=== PATIENT | female | born 1990 | race Hispanic/Latino ===

== ENCOUNTER 2022-08-10 23:52 | Emergency (ER) | payer OTHER ==
[~2022-08-10] VITALS: Ht 157.5 cm; Wt 74.8 kg
[2022-08-11 00:56] LABS: BASOPHILS % (AUTO) 0.5 % (0.0-5.0); EOSINOPHILS % (AUTO) 2.3 % (0.0-8.0); HEMATOCRIT 34.3 % (36-48); LYMPHOCYTES % (AUTO) 25.2 % (21.0-51.0); MEAN CORPUSCULAR HEMOGLOBIN 23.4 pg (27.0-33.0); MEAN CORPUSCULAR HGB CONC 31.5 g/dL (32.0-36.0); MEAN CORPUSCULAR VOLUME 74.2 fL (79-99); MONOCYTES % (AUTO) 5.8 % (3.0-13.0); NEUTROPHILS % (AUTO) 65.9 % (40.0-77.0); PLATELET COUNT (AUTO) 281 K/uL (130-400); RED BLOOD CELL COUNT(AUTO) 4.62 MIL/uL (4.00-5.50); RED CELL DISTRIBUTION WIDTH 15.4 % (11.0-15.5); WHITE BLOOD COUNT (AUTO) 11.6 K/uL (4.8-10.8)
[2022-08-11 00:59] LABS: APPEARANCE,URINE CLOUDY (CLEAR); BILIRUBIN,URINE NEGATIVE (NEGATIVE); COLOR,URINE YELLOW (YELLOW); GLUCOSE, URINE (UA) NEGATIVE (NEGATIVE); KETONES,URINE NEGATIVE (NEGATIVE); LEUKOCYTE ESTERASE ,URINE NEGATIVE Leu/uL (NEGATIVE); NITRATE,URINE 2+ (NEGATIVE); OCCULT BLOOD,URINE NEGATIVE (NEGATIVE); PH,URINE 5.5 (5.0-8.0); PROTEIN,URINE 30 mg/dL (NEGATIVE); UROBILINOGEN,URINE 0.2 mg/dL (0.2-1.0)
[2022-08-11 01:08] LABS: BACTERIA,URINE MANY /HPF (None Seen); MUCUS,URINE RARE LPF (None Seen); OTHER CASTS, URINE 3 /LPF (None Seen); RBC,URINE 0-1 /HPF (0-1); SQUAMOUS EPITHELIAL CELL,UR FEW /HPF (0-2)
[2022-08-11 01:11] LABS: CREATININE 0.6 mg/dL (0.5-1.5); POTASSIUM 3.8 mmol/L (3.5-5.1)
[2022-08-11 01:17] LABS: ALBUMIN 3.8 g/dL (3.5-5.0); TOTAL PROTEIN, SERUM 8.6 g/dL (6.0-8.3)
[2022-08-11] MEDS ORDERED: IBUPROFEN 600 MG TABLET PO ONE (04:30)
[2022-08-11] MEDS ORDERED: CEFTRIAXONE 1G VIAL IVPB ONE (04:30)
[2022-08-11] MEDS ORDERED: IBUP-2070 PO (06:26)
[2022-08-11] MEDS ORDERED: MACR100 PO (06:26)
[2022-08-11 06:41] VITALS: BP 132/75
== END 2022-08-11 06:52 | disposition home or self-care (01) ==
LOC: EDH 23:52 → EDBD 23:52 → EDH 08-11 06:52
DX: R10.2 Pelvic and perineal pain (principal); N39.0 Urinary tract infection, site not specified; N93.8 Other specified abnormal uterine and vaginal bleeding; M19.90 Unspecified osteoarthritis, unspecified site; E11.9 Type 2 diabetes mellitus without complications
CPT/HCPCS: 99285; 80053; 83690; 85025; 86850; 86900; 86901; 87077; 87088; 87186; 81001; 81025; 36415; 96365; 76830; 96366; J0696

== ENCOUNTER 2024-03-13 11:20 | Emergency (ER) | payer SELFPAY ==
[~2024-03-13] VITALS: Ht 165.1 cm; Wt 75.3 kg
[~2024-03-13 11:20] MED LIST: IBUP-2070 PO; MACR100 PO
--- NOTE | 2024-03-13 11:59 | ERN ---
ED Note History of Present Illness Stated Complaint: BACK PAIN Chief Complaint: Back Pain-No Injury Time Seen by MD: 11:22 Time Seen by Midlevel: 11:22 Dictation: 33-year-old female presents to the emergency department due to report of having low back pain that started 4 months ago. She states that she is currently being seen by a PCP who having a suspicion of rheumatoid arthritis and is pending for her to see a specialist. Currently, she denies having any trauma associated with this. There is no report of any fever, chills, nausea, vomiting, hematuria or dysuria associated with this. Patient states that the pain is not really reproducible but some movement does worsen it. At this time, she rates her pain level as a 7/10. Upon initial evaluation, the patient presents mildly uncomfortable looking. 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 Home Meds Active Scripts Ibuprofen (Ibuprofen) 600 Mg Tablet, 600 MG PO Q6H PRN for PAIN, #30 TAB 0 Refills Prov:INDRA CASTRO MD 08/11/22 Nitrofurantoin/Nitrofuran Mac (Macrobid) 100 Mg Cap, 1 CAP PO BID for 7 Days, #14 CAP 0 Refills Prov:INDRA CASTRO MD 08/11/22 Past Medical History Past Medical History: Arthritis, Diabetes-Type II Surgical History: None PSYCH History: no pertinent psych hx Social History: Lives with family LMP: Mar 09, 2024 RN Note Reviewed/Agreed w/PFSH: Yes Review of System Dictation MS/Extremity: Low back pain Initial Vital Sign VS Vital Signs Date Time Temp Pulse Resp B/P (MAP) Pulse Ox O2 Delivery O2 Flow Rate FiO2 03/13/24 11:22 98.6 94 20 133/81 99 03/13/24 12:30 Room Air* 0 21 Physical Exam Dictation General: awake, alert, NAD Head/Face: Normocephalic, atraumatic Eyes: PERRL, EOMI ENT: Oral mucosa moist Neck: Trachea midline, supple Cardiovascular: RRR, no edema Respiratory: Symmetrical, non-labored Abdomen: Soft, non-tender, non-distended, no guarding. Skin: Warm, dry, good turgor, no rash MS/Extremity: Pulses equal, no cyanosis, neurovascular intact, FROM Neuro: COAx4, GCS 15, steady gait, Psych: Normal behavior, mood, and affect normal Results (Laboratory/Radiology) Laboratory/Radiology Laboratory Tests Test 03/13/24 12:40 Urine HCG, Qualitative NEGATIVE (NEGATIVE) Labs Reviewed?: Yes ED Course ED Course Orders Procedure Category Date Status Time ,Urine Test LAB 03/13/24 Complete 11:47 Ketorolac 60mg/2ml PHA 03/13/24 Complete (Toradol 60mg/2ml) 12:00 Dexamethasone 4mg/Ml PHA 03/13/24 Complete 1ml Vial (Dexametha 12:00 Lidocaine (Lidoderm PHA 03/13/24 Complete Patch 5%) 12:00 Current Medications Medications (Trade) Dose Ordered Sig/Mirna Route PRN Reason Start Time Stop Time Status Last Admin Dose Admin Dexamethasone Sodium Phosphate (dexaMETHasone 4MG/ML 1ML VIAL) 8 mg ONCE ONCE IM 03/13/24 12:00 03/13/24 12:01 DC 03/13/24 12:57 Ketorolac Tromethamine (toRADol 60MG/ 2ML) 60 mg ONCE ONCE IM 03/13/24 12:00 03/13/24 12:01 DC 03/13/24 12:57 Lidocaine (Lidoderm Patch 5%) 1 patch ONCE ONCE TP 03/13/24 12:00 03/13/24 12:01 DC 03/13/24 12:57 Vital Signs Date Time Temp Pulse Resp B/P (MAP) Pulse Ox O2 Delivery O2 Flow Rate FiO2 03/13/24 14:05 98.2 82 16 126/72 98 Room Air* 0 03/13/24 12:30 98.6 90 16 130/76 98 Room Air* 0 03/13/24 11:22 98.6 94 20 133/81 99 Medical Decision Making MDM MDM: Differential diagnosis: Acute low back pain, chronic low back pain, lumbago. Rationale: Tests considered and ordered secondary to shared decision making include: Previous outside records reviewed: Old ER visits. Risk of complication and/or morbidity or mortality of patient management: None Medications-Per medication reconciliation Need for hospitalization: Patient does not meet criteria for hospitalization. Need for emergency major/minor surgery: No There are no social concerns with this patient. Prescription drug management Prescriptions will include symptomatic care Patient's prior external medical records from other ER visits were reviewed by me as indicated. Prior testing and results from previous visits were reviewed. Prior tests were taken into account with medical decision making and resource utilization, independent historian/historians were used to obtain complete medical history. I independently interpreted the test that were performed, results were reviewed by me and considered findings on radiology if ordered. Medical management and examination interpretation discussions were had by me with other qualified healthcare professionals as indicated for the patient's care. DX & DISP Disposition: Discharge Departure Impression: Primary Impression: Acute low back pain Additional Impression: History of rheumatoid arthritis Condition: Stable Additional Instructions: Continue with scheduled appointment with PCP tomorrow for referral to [facility]. Referrals: NAVID WHATLEY M.D. (PCP) Time of Disposition: 14:02 JANAE ROBB Mar 13, 2024 11:59 CLARICE SAUNDERS DO Mar 14, 2024 07:50
[2024-03-13] MEDS: dexaMETHasone SOD PHOSPHATE 4 MG/ML 1ML VIAL IM ONE (12:57)
[2024-03-13] MEDS: LIDOCAINE 5% TOPICAL PATCH TP ONE (12:57)
[2024-03-13] MEDS: ketOROlac 60 MG VIAL (30MG/ML) IM ONE (12:57)
[2024-03-13 14:05] VITALS: BP 126/72; PULSE 82; RESP 16; TEMP 98.3; O2SAT 98
== END 2024-03-13 14:11 | disposition home or self-care (01) ==
LOC: EDH 11:20
DX: M54.50 Low back pain, unspecified (principal); E11.9 Type 2 diabetes mellitus without complications; M06.9 Rheumatoid arthritis, unspecified
CPT/HCPCS: 99284; 81025; 96372 ×2; J1100; J1885

== ENCOUNTER 2024-06-07 13:36 | Emergency (ER) | payer SELFPAY ==
[~2024-06-07] VITALS: Ht 170.2 cm; Wt 68.9 kg
--- NOTE | 2024-06-07 13:45 | EKG ---
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
[2024-06-07] MEDS ORDERED: ACET-2079 PO (14:30)
--- NOTE | 2024-06-07 14:33 | ERN ---
ED Note History of Present Illness Stated Complaint: CHEST PAIN WHEN BREATHING Chief Complaint: Chest Wall Pain Time Seen by MD: 13:41 Dictation: PATIENT IS A 33-YEAR-OLD FEMALE HERE WITH COMPLAINTS OF ANTERIOR CHEST WALL PAIN TENDERNESS WORSE WITH INSPIRATION OR COUGH FOR THE LAST TWO DAYS. SHE DENIES FEVER CHILLS NO HISTORY OF CAD. HAS NOT TAKEN ANYTHING PRIOR TO ARRIVAL FOR PAIN. Allergies: Coded Allergies: No Known Drug Allergies (Unverified Allergy, Unknown, 08/11/22) Home Meds Active Scripts Ibuprofen (Ibuprofen) 600 Mg Tablet, 600 MG PO Q6H PRN for PAIN, #30 TAB 0 Refills Prov:INDRA CASTRO MD 08/11/22 Nitrofurantoin/Nitrofuran Mac (Macrobid) 100 Mg Cap, 1 CAP PO BID for 7 Days, #14 CAP 0 Refills Prov:INDRA CASTRO MD 08/11/22 Past Medical History Past Medical History: Arthritis, Diabetes-Type II Surgical History: None, BTL Social History: Lives with family History: Not Applicable RN Note Reviewed/Agreed w/PFSH: Yes Review of System Dictation CONSTITUTIONAL: NEGATIVE EXCEPT FOR HPI HEAD/FACE: NEGATIVE EXCEPT FOR HPI EENT: NEGATIVE EXCEPT FOR HPI BILATERAL ANTERIOR CHEST WALL TENDERNESS WITH PALPATION RESPIRATORY: NEGATIVE EXCEPT FOR HPI GASTROINTESTINAL/ABDOMINAL: NEGATIVE EXCEPT FOR HPI GENITOURINARY: NEGATIVE EXCEPT FOR HPI MUSCULOSKELETAL: NEGATIVE EXCEPT FOR HPI INTEGUMENTARY: NEGATIVE EXCEPT FOR HPI NEUROLOGICAL/PSYCH: NEGATIVE EXCEPT FOR HPI HEMATOLOGIC/LYMPHATIC: NEGATIVE EXCEPT FOR HPI ALL SYSTEMS NEGATIVE, EXCEPT NOTED ABOVE. 13 POINT REVIEW OF SYSTEMS ASSESSED AND ALL NEGATIVE EXCEPT FOR ABOVE. Initial Vital Sign VS Vital Signs Date Time Temp Pulse Resp B/P (MAP) Pulse Ox O2 Delivery O2 Flow Rate FiO2 06/07/24 13:37 98.2 100 16 151/100 100 Room Air 0 Physical Exam Dictation VITAL SIGNS REVIEWED SELIN LAMAR IN ROOM WITH THE EXAM GENERAL APPEARANCE: ALERT, ORIENTED X 3, NO ACUTE DISTRESS, WELL DEVELOPED, NOURISHED. HEAD AND FACE: NON-TRAUMATIC. EYES: PERRL, PINK CONJUNCTIVAS, EYELID NO TRAUMA, ANTERIOR CHAMBER WITH ARCUS SENILIS. EARS: PINNAS INTACT AND NO SIGNS OF TRAUMA OR ERYTHEMA EAR CANALS CLEAR AND NO DISCHARGE TM NO ERYTHEMA NOSE: NO DISCHARGE, NO BLEEDING. OROPHARYNX: MOUTH NORMAL, TONGUE PINK, PHARYNX CLEAR,NO ERYTHEMA, TONSILS NO EXUDATES, NO ABSCESSES NOTED, MUCOUS MEMBRANE MOIST NECK: SUPPLE, NON-TENDER, NO THYROMEGALY, NO MASSES, NO JVD, NO BRUITS BREAST:DEFERRED CHEST: DIFFUSE ANTERIOR CHEST WALL TENDERNESS TENDERNESS, NO CREPITUS, NO PARADOXICAL MOVEMENT, NO RETRACTIONS NO LESIONS LUNGS:CLEAR, WELL-VENTILATED, SYMMETRIC, NO RALES, NO WHEEZING, NO RHONCHI, NO STRIDOR, GOOD BREATH SOUNDS BILATERALLY BILATERAL BREATH SOUNDS CLEAR HEART: REGULAR RATE, REGULAR RHYTHM, NO MURMUR, NO GALLOPS VASCULAR: NO PERIPHERAL EDEMA, ABDOMEN: SOFT, POSITIVE BOWEL SOUNDS, NONDISTENDED, NO GUARDING, NONTENDER, NO REBOUND, NO MASSES NO HEPATOMEGALY, NO SPLENOMEGALY, NO MASON'S SIGN, NO HERNIAS. RECTAL: DEFERRED GENITAL: DEFERRED NEUROLOGICAL: NORMAL SPEECH, MOTOR FUNCTION INTACT, SENSORY FUNCTION INTACT MUSCULOSKELETAL: NECK NONTENDER, FULL RANGE OF MOTION, BACK NONTENDER, FULL RANGE OF MOTION, EXTREMITIES: NONTENDER, FULL RANGE OF MOTION SKIN: COLOR PINK, DRY, NO TURGOR, NO RASH, NO LACERATIONS, NO ABRASIONS, NO CONTUSIONS. 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 ED Course ED Course Orders Procedure Category Date Status Time 12 Lead Ekg Tracing- EKG 06/07/24 Complete Technical 13:39 Acetaminophen 500mg PHA 06/07/24 Verified Tab (Tylenol 500mg T 14:30 Dexamethasone 4mg/Ml PHA 06/07/24 Verified 1ml Vial (Dexametha 14:30 Vital Signs Date Time Temp Pulse Resp B/P (MAP) Pulse Ox O2 Delivery O2 Flow Rate FiO2 06/07/24 13:37 98.2 100 16 151/100 100 Room Air 0 1430/PATIENT WILL BE TREATED FOR ACUTE COSTOCHONDRITIS DISCHARGED HOME TO SEE HER DOCTOR ON SUNDAY. SHE IS AWARE EKG IS NEGATIVE NO FEVER NO CHILLS AT THIS TIME Medical Decision Making MDM MEDICAL DISCHARGE MAKING BASED ON EKG AND EMPIRIC TREATMENT FOR ACUTE COSTOCHONDRITIS. PATIENT STATES PAIN IS IMPROVING AFTER TREATMENT. DISCHARGED HOME TO SEE HER DOCTOR ON SUNDAY WITHOUT FAIL. DX & DISP Disposition: Discharge Departure Impression: Primary Impression: Acute costochondritis Condition: Stable Scripts Acetaminophen with Codeine (Acetaminophen-Cod #3 Tablet) 300 Mg-30 Mg Tablet 1 TAB PO Q4H PRN for MODERATE TO SEVERE PAIN, #10 TAB 0 Refills Prov: ERNESTINE NERI ASSOCIATE PRODUCT MANAGER 06/07/24 Additional Instructions: Follow-up with primary care provider in 1 to 2 days. Take medications as directed here in the emergency room. Okay to continue home medications unless otherwise discussed during your visit in the emergency room today. Return to your nearest emergency room if symptoms worsen or if there is no improvement. Call 911 if you need immediate assistance. Take Tylenol or Motrin over -the-counter as needed and if no contraindications are present. Increase oral hydration. A wound culture or urine culture was ordered here in the emergency room department please follow-up with primary care provider and advise them to get repeat ports from our facility. If you had any Ramsey wrap/splints that were applied here, please do not remove them until you see your primary care or specialty. Take Tylenol with codeine as directed for severe pain. See your primary care doctor on Sunday or Sunday for follow up and management Referrals: SELF,REFERRAL (PCP) Time of Disposition: 14:29 I have reviewed the case, and I agree with, Diagnosis and Plan ERNESTINE NERI NP Jun 07, 2024 14:33
[2024-06-07 15:10] VITALS: BP 149/99; PULSE 89; RESP 16; TEMP 98.2; O2SAT 100
[2024-06-07] MEDS: acetaMINOPHEN 500 MG TABLET PO ONE (15:29)
[2024-06-07] MEDS: dexaMETHasone SOD PHOSPHATE 4 MG/ML 1ML VIAL IM ONE (15:29)
== END 2024-06-07 15:37 | disposition home or self-care (01) ==
LOC: EDH 13:36
DX: M94.0 Chondrocostal junction syndrome [Tietze] (principal); E11.9 Type 2 diabetes mellitus without complications; Z79.899 Other long term (current) drug therapy; Z98.51 Tubal ligation status
CPT/HCPCS: 99283; 96372; 93005; J1100